=== PATIENT | female | born 1945 | race Caucasian/White ===

== ENCOUNTER → 2018-01-27 | Outpatient (CLI) | payer MEDICARE, BC, SELFPAY ==
--- NOTE | 2018-01-27 21:00 | DI.ECHO.S_ITS ---
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 -The resting gradient is 29 mmHg which increases to 56 mmHg with Valsalva maneuver. -No aortic valve stenosis or regurgitation. -Recommend repeating the study after hydration and possibly beta eloisa therapy to reassess the gradients. Procedure: A two-dimensional transthoracic echocardiogram with color flow and Doppler was performed. The study quality was technically adequate. There is no prior echocardiogram noted for this patient. The patient was in normal sinus rhythm during the exam. Left Ventricle: There is moderate proximal septal thickening noted. The left ventricular cavity is small. The echo findings are consistent with left ventricular outflow obstruction. The LVOT velocity is 2.7 m/s. The left ventricular outflow velocity with valsalva is 3.7 m/sec. The left ventricular ejection fraction is normal. The ejection fraction is estimated to be 65-70%. There are no focal wall motion abnormalities. Diastolic parameters suggest a relaxation abnormality of the left ventricle, consistent with probable normal filling pressures. Right Ventricle: The right ventricle is normal in size and function. TAPSE 2.4cm. Atria: The left atrium is moderately dilated. Right atrial size is normal. There is no Doppler evidence for an interatrial shunt. Mitral Valve: The mitral valve leaflets appear mildly thickened, but open well. There is systolic anterior motion of the chordal apparatus. There is mild to moderate mitral regurgitation. PISA could not be reliably performed due to 'poor color doppler quality'. Aortic Valve: The aortic valve is trileaflet. There is mild aortic valve sclerosis. The aortic valve opens well. There is increased velocities through the aoritc valve however visually the valve appears to open well. The increased velocity secondary to increased velocity in the left ventricular outflow tract. The peak aortic velocity is 2.2 m/sec. There is no aortic valve stenosis. There is trace aortic regurgitation. Tricuspid Valve: The tricuspid valve is normal. There is trace tricuspid regurgitation. The right ventricular systolic pressure is estimated to be at least 29 mmHg based on an estimated right atrial pressure of 3 mm Hg. Pulmonic Valve: The pulmonic valve is not well visualized. There is a trace or physiologic amount of pulmonic regurgitation. Great Vessels: The aortic root is normal size. The ascending aorta is at the upper limits of normal in size. The aortic arch is mildly enlarged. The pulmonary is not well visualized. The IVC is of normal diameter and collapses greater than 50% with a sniff. This suggests a low right atrial pressure of 3 mm Hg. Pericardium/ Pleura There is no pericardial effusion. There is no pleural effusion. MMode/2D Measurements & Calculations LVIDd: 3.3 cm LVOT diam: 2.0 cm LVIDs: 2.5 cm Ao root diam: 3.6 cm FS: 23.4 % asc Aorta Diam: 3.6 cm EPSS: 0.39 cm Ao Arch Diam (Prox Trans): 3.6 cm IVSd: 1.4 cm LVPWd: 0.81 cm LV riojas. diameter/BSA (cm/m^2): 1.8 LV sys. diameter/BSA (cm/m^2): 1.4 LA A2 area: 25.3 cm2 RA long axis: 4.5 cm LA A4 area: 25.6 cm2 RA area: 14.4 cm2 LA length (vol): 6.3 cm RA vol: 39.4 ml LA vol: 86.9 ml RA : 21.2 ml/m2 LA vol index: 46.7 ml/m2 IVC diam: 1.8 cm RVD1 (basal): 3.9 cm RVD2 (mid): 3.2 cm TAPSE: 2.4 cm Doppler Measurements & Calculations Ao V2 max: 219.8 cm/sec LVOT Max Kam: 357.5 cm/sec Ao V2 mean: 174.5 cm/sec LV V1 max P.2 mmHg Ao max P.3 mmHg DEWEY(V,D): 4.9 cm2 Ao mean P.3 mmHg Ao V2 VTI: 42.6 cm MV E max kam: 89.5 cm/sec TR max kam: 253.7 cm/sec MV A max kam: 100.9 cm/sec TR max P.7 mmHg MV E/A: 0.89 PA V2 max: 95.2 cm/sec Med Peak E' Kam: 6.2 cm/sec PA V2 mean: 66.7 cm/sec E/E' med: 14.4 PA mean P.0 mmHg Lat Peak E' Kam: 10.9 cm/sec PA pr(Accel): 21.6 mmHg E/E' lat: 8.2 E/e' average: 11.3 MV dec time: 0.21 sec _ Electronically signed by: Igor Carrillo M.D. on Reading Physician:01/27/2018 09:00 PM
== END ==
LOC: ECHO 12:32
PROVIDERS: PCP Physician Assistant; Visit Provider Physician Assistant
DX: I08.0 Rheumatic disorders of both mitral and aortic valves (principal)
CPT/HCPCS: 93306

== ENCOUNTER 2024-07-02 13:39 | Inpatient (IN) | payer MEDICARE, BC, SELFPAY ==
[2024-06-24 12:17] VITALS: BMI 30.8
[2024-07-01] VITALS (12 sets, daily range): BP systolic 105–188; BP diastolic 67–80; PULSE 66–88; RESP 10–18; TEMP 36.3–36.9; O2SAT 90–100; BMI 30.8
--- NOTE | 2024-07-01 07:16 | DI.RAD.S_ITS ---
PROCEDURE: XR KNEE RT 1TO2V INDICATIONS: right knee arthroplasty TECHNIQUE: 2 views of the knee acquired. COMPARISON: [facility] Vervinayak Aguilera, CR, XR KNEE 4+ VIEWS RIGHT, 03/25/2024, 10:32. FINDINGS: Bones: Patient is status post knee joint arthroplasty. Hardware components are in expected positions. Visualized bony structures are intact. Chronic calcification again noted adjacent to the medial femoral epicondyle. Soft tissues: Overlying postoperative changes are noted. IMPRESSION: Expected post-operative appearance of a knee arthroplasty. Approved by: Bradley Singh M.D. on 07/01/2024 at 17:06
[2024-07-01] MEDS: ACETAMINOPHEN 325 MG TABLET 975 MG PO (12:00)
[2024-07-01] MEDS: LACTATED RINGERS 1,000 ML 42 ML IV ×2 (12:01→15:21)
[2024-07-01] MEDS: VANCOMYCIN 1,000 MG in SODIUM CHLORIDE 0.9% 250 ML 250 MG IV (12:50)
--- NOTE | 2024-07-01 13:23 | SUR.PREOP ---
iv started by Kalpana Escamilla, KIYA x 2 attempts
--- NOTE | 2024-07-01 14:02 | PM.PREOP ---
Pre-operative Note Interval Note History & Physical reviewed/Exam performed by Physician: Yes Changes to H&P: No
--- NOTE | 2024-07-01 14:04 | PM.OP.1 ---
Operative Date/Time/Diagnoses Date of procedure: 07/01/24 Time of procedure: 14:30 Pre-op diagnosis: Right knee OA Post-op diagnosis: same Procedure & Clinicians Procedure: Right total knee arthroplasty Same procedure as scheduled: Yes Indications: The patient has had progressively worsening right knee pain with radiographic changes consistent with arthritis. Non-operative management has failed and the patient has requested total knee replacement. The risks, benefits and alternatives to surgery were discussed with the patient prior to proceeding. Risks discussed included, but were not limited to, failure to relieve pain, stiffness, infection, nerve damage, deep venous thrombosis, pulmonary embolism, stroke, coma, heart attack, permanent paralysis and , as well as the potential need for eventual revision of the prosthetic. Surgeon: Rissa Us Magazine Filler: Norma Khoury Anesthesia Type: General and Spinal Operative Notes Findings: Severe right knee OA Closure Type: primary Specimen(s): none sent Prosthetic devices, grafts, tissues, transplants, or devices: Us and nephew tsewney BCS 2 size 5 femur, size 4 tibia, +9 poly, 35 x 7-1/2 mm patella Estimated Blood Loss (mL): 250 Blood products transfused: none Tourniquet time (min): 38 Procedure in detail: The patient was seen in the pre-operative area, where the patient identified the right knee as the operative site and this was marked with my initials. The patient received pre-operative antibiotics, and was taken to the operating room and placed on the operative table in the supine position. After satisfactory anesthesia, a tower control operator out was performed. The right leg was encircled with a tourniquet about the proximal thigh, and the leg was prepared from the toes to the tourniquet with ChloroPrep in the usual fashion and draped through sterile drapes. The leg was elevated and exsanguinated with Eschmark bandage and the tourniquet inflated to [250] mmHg pressure. The patient was quite hypertensive and clearly it was a venous tourniquet. We put the tourniquet down after about 1 minute and then left it down until cementing. A PA was used during the procedure and was essential for intraoperative retraction and safe implantation of the components. The knee was approached through an approximately 18 cm incision centered over the patella and carried into the knee through a medial parapatellar arthrotomy. Portion of the medial and lateral meniscus was resected. Soft tissue was carefully mobilized around the patella the patella was measured with a caliper. Bone was resected from the patella and the patellar height was reconstituted with up an appropriate sized patellar component. A cover was then placed on the patella. A small amount of additional medial and lateral meniscus was resected. Alberto pins were placed for robotic assisted navigated knee replacement. The adjustable tibial guide was placed. A plan was carefully taken developed in order to provide balanced range of motion and full range of motion of the knee. The Cori robotic bur was used for the distal femoral resection. It looked like an appropriate distal femoral cut and the cut was made without difficulty. The rotation was assessed and the appropriate size femoral guide was placed on the distal femur and finishing cuts were made. There was no evidence of notching. The anterior, posterior and chamfer cuts were then made. The posterior osteophytes and soft tissues were then removed. The posterior capsule was injected with part of a mixture of 60 ml 0.25% Marcaine mixed with 20 ml Exparel for post operative pain control. The remainder of this mixture was injected into the capsule and subcutaneous tissues during cement curing. The tibial resection guide was carefully navigated with the Cori robotic assisted device. The rotation was assessed. The patient was placed in extension residual medial and lateral meniscus as well as any residual bone was carefully resected. [No] additional tibia was resected. Hemostasis was achieved especially posteriorly. Additional local was injected into the posterior capsule. The extension gap was assessed. The femoral component trial was placed and the notch was finished. Trial tibial and femoral components were then placed and the knee placed through a range of motion. Range of motion was [0-130], with good stability throughout the range. The trials were then removed, and the tibia was finished. The bone was prepared with pulsatile lavage, and dried with a sponge. Cement was applied and the final prosthetics placed. Excess cement was removed during and after cement curing. A brief Betadine soak was performed. After confirming there was no extruded cement posteriorly, the final tibial insert was placed. The knee was copiously irrigated and the tourniquet deflated. Hemostasis was obtained with the [Aquamantys system]. A drain was placed and brought out superolaterally. The capsule was closed with interrupted # 1 Vicryl suture. The subcutaneous layer was closed with barbed sutures, and the skin with a running 3-0 V-Lock suture and Surgical glue. An Aquacel Ag dressing was applied and the patient was taken to recovery having tolerated the procedure well. Complications: none Post-operative Condition: stable Disposition: Acute Care Plan for aftercare: The patient will be maintained on a standard total knee replacement protocol with weight bearing as tolerated. The patient will receive aspirin and sequential compression devices for DVT prophylaxis. The patient will be discharged home when safe for the home environment.
[2024-07-01] MEDS: CEFAZOLIN 2 GM/100 ML PREMIX 100 ML IV ×2 (14:14→22:41)
--- NOTE | 2024-07-01 14:24 | SUR.PREOP ---
time out performed by Dr Case and this RN @ 1346. start time [1347] . Monitoring initiated and maintained throughout procedure. Oxygen and medications given per anesthesiologist. Patient remained stable throughout procedure, no adverse reactions noted. Block end time [1355].
[2024-07-01] MEDS: TRANEXAMIC ACID 1,000 MG VIAL 1000 MG INJ ×2 (14:29→16:20)
--- NOTE | 2024-07-01 14:53 | SUR.OPER ---
Supine on padded OR bed. Pillow under head, arms secured on padded armboards <90 degree abduction. Safety belt across torso. Non-operative leg secured with tape over blanket over lower leg. Operative leg secured in DeMayo positioner. Foam padded brace at thigh of operative leg.
[2024-07-01] MEDS: BUPIVACAINE 0.25% W/ EPI 30 ML VIAL 60 ML INJ (14:59)
[2024-07-01] MEDS: BUPIVACAINE LIPOSOME 266 MG/20 ML VIAL INJ (14:59)
--- NOTE | 2024-07-01 16:59 | PC.NURSE ---
Day shift: Pt not in room 209 at this time (1700).
[2024-07-01] MEDS: HYDROMORPHONE 1 MG INJ IV ×2 (17:06→17:34)
[2024-07-01] MEDS: BENZOCAINE/MENTHOL 1 LOZ PKT 1 EACH PO ×2 (17:16→23:57)
[2024-07-01] MEDS: OXYCODONE IR 5 MG TABLET PO ×2 (17:25→20:48)
[2024-07-01] MEDS: ALBUTEROL 2.5 MG/3 ML NEB (ADULT) INH (17:26)
[2024-07-01] MEDS: LACTATED RINGERS 1,000 ML 100 ML IV (18:21)
--- NOTE | 2024-07-01 18:23 | PC.NURSE ---
Day shift: Pt in room from PACU at approx 1815. She is A&Ox4. On 2L NC 95%. Was on RA and was 89%. She is asleep now as this is written. Rt knee dressing are CDI. CMS intact with PPP and good cap refill. SCD's tolerated. Was instructed on I.S. VS WNL. Oriented to room and call light. Denies urge to void at this time. ALos denies any chest pain. She did and does complain of sore throat. Explained that it was likely from being intubated. SPOOLER RUBBER STRAND explained this as well. SPOOLER RUBBER STRAND also instructed Pt on the I.S. use. Bed alarm is on for safety and door to room open for now.
[2024-07-01] MEDS: DOCUSATE 100 MG CAPSULE PO (20:48)
[2024-07-01] MEDS: ASPIRIN EC 81 MG TABLET PO (20:48)
[2024-07-01] MEDS: ACETAMINOPHEN 325 MG TABLET 650 MG PO (20:48)
[2024-07-01] MEDS: VENLAFAXINE 37.5 MG TABLET 75 MG PO (20:48)
--- NOTE | 2024-07-01 23:59 | PC.NURSE ---
Up to BSC x 2, unable to void. Reports discomfort, Bladder scan > 450cc. Straight cath- 400cc at midnight.
[2024-07-02] VITALS (9 sets, daily range): BP systolic 100–172; BP diastolic 66–105; PULSE 68–78; RESP 14–18; TEMP 36.4–37.3; O2SAT 93–99
[2024-07-02] MEDS: OXYCODONE IR 5 MG TABLET PO ×2 (02:48→20:28)
[2024-07-02] MEDS: CALCIUM CARBONATE 500 MG TAB 1000 MG PO ×2 (04:30→20:28)
[2024-07-02 05:13] LABS: Hematocrit 21.4 % (36-46)
[2024-07-02 05:16] LABS: Hemoglobin 6.8 g/dL (12.0-16.0)
[2024-07-02] MEDS: CEFAZOLIN 2 GM/100 ML PREMIX 100 ML IV (05:22)
[2024-07-02] MEDS: PANTOPRAZOLE DR 40 MG TABLET PO (05:47)
[2024-07-02] MEDS: VENLAFAXINE 37.5 MG TABLET 75 MG PO ×2 (08:35→20:28)
[2024-07-02] MEDS: TRAZODONE 50 MG TABLET 100 MG PO (08:35)
[2024-07-02] MEDS: ASPIRIN EC 81 MG TABLET PO ×2 (08:35→20:28)
--- NOTE | 2024-07-02 08:48 | PM.PNPO.1 ---
Subjective Subjective Date Patient Seen: 07/02/24 Time Patient Seen: 08:30 Interval history: Patient's pain is controlled with oral medication. Pain is localized to surgical site. Patient declines any new numbness or tingling at the surgical extremity. Patient denies any shortness of breath, dizziness, light-headedness, nausea, vomiting, fever or chills. Has not worked with PT yet. Exam Vital Signs (past 8 hours): - 07/02/24 01:00 07/02/24 06:00 Temperature 97.6 F 98.6 F Pulse Rate 68 69 Respiratory Rate 18 18 Blood Pressure 100/66 123/80 Pulse Oximetry 93 93 Oxygen Flow Rate 2 2 Oxygen Delivery Method Nasal Cannula Oxygen Flow Rate 2 Narrative Exam Narrative: 5/5 strength in hip flexors, quadriceps, hamstrings, DF, PF, EHL bilaterally. Sensation to light touch intact throughout BLE. Calves soft, compressible, nontender. Dressing placed intraoperatively CDI. No signs of echymosis or an abnormal amount of post operative swelling. SCDs on but not running. Resp Effort & Inspection: normal respiratory effort and able to speak in complete sentences Objective Labs 07/02/24 14:30 Labs: Laboratory Results - last 24 hr 07/02/24 04:40 Hgb 6.8 L* Hct 21.4 L PFSH Medical History (Updated 06/25/24 @ 07:55 by Shannen Bella RN) Cardiomyopathy Hiatal hernia Peritonitis HTN (hypertension) Insomnia Anemia IBS (irritable bowel syndrome) GERD (gastroesophageal reflux disease) Depression Asthma Surgical History (Updated 06/24/24 @ 15:31 by Shannen Bella RN) Hx of esophagogastroduodenoscopy (06/18/16) Hx of LASIK H/O cataract extraction Hx of cholecystectomy (04/10/07) History of hysterectomy (~1979) Social History household members: spouse Smoking Status: Never smoker alcohol intake: current Assessment & Plan Post-op Postoperative Procedures: Procedures Operation Date: 07/01/24 13:45 Actual Procedure Side Surgeon p RIGHT Knee Arthroplasty - Robot Right Rissa Us MD Postoperative day: 1 Postoperative status: doing well and anemia Postoperative plan narrative: H&H this morning was 6.8/21.[address] Us. She ordered 1 unit of RBC. Repeat H&H later in the day 8.4/26.4. Will repeat H&H tomorrow morning. Patient is motived to go home. SCDs turned on before leaving pt. SCDs are to be on and running when resting in bed. Ambulate and weight bear as tolerated with assistive devices. Work with PT for mobilization. Aspirin 81 mg twice a day for 6 weeks for DVT prevention. Baseline pain relief with acetaminophen 500mg every 4 hours as needed and ibuprofen 400 mg every 4 hours as needed. Patient has been prescribed oxycodone 5 mg every 4 hours as needed for breakthrough pain. Re-examine in the morning. If medically stable and with PT clearance, will be ready for discharge to home. Quality VTE Deep Vein Thrombosis/Pulmonary Embolism Present on Admission: No
--- NOTE | 2024-07-02 09:24 | PT-IP ANOTE ---
PT eval order received. EMR reviewed. pt with hgb 6.8 and Hct: 21.4. pt will be receiving blood transfusion per ortho PA. will hold PT eval at this time. will f/u.
--- NOTE | 2024-07-02 10:23 | OT.IPNOTE ---
Pt having low HH, hold OT eval.
[2024-07-02 14:41] LABS: Hematocrit 26.4 % (36-46); Hemoglobin 8.4 g/dL (12.0-16.0)
--- NOTE | 2024-07-02 16:00 | PT.IIE ---
Current Diagnoses Unilateral primary osteoarthritis, right knee (07/02/24) Surgery Performed Operation Date: 07/01/24 13:45 Actual Procedures p RIGHT Knee Arthroplasty - Robot(Right) - Rissa Us MD Surgical History (Last Updated 06/24/24 @ 15:31 by Shannen Bella, RN) H/O cataract extraction History of hysterectomy (~1979) Hx of cholecystectomy (04/10/07) Hx of esophagogastroduodenoscopy (06/18/16) Hx of LASIK Medical History (Last Updated 06/25/24 @ 07:55 by Shannen Bella, RN) Anemia Asthma Cardiomyopathy Depression GERD (gastroesophageal reflux disease) Hiatal hernia HTN (hypertension) IBS (irritable bowel syndrome) Insomnia Peritonitis Physical Therapy Inpatient Evaluation/Re-Eval M1 PT/OT-IP Prior Functional Status Start: 07/02/24 15:38 Freq: NEEDED Status: Active Protocol: Document 07/02/24 15:35 DLM (Rec: 07/02/24 15:42 DLM [id number]) Medical Review Prior Functional Status Medical History Reviewed Yes Diet/Fluid Consistency Regular Communication WFL Mobility and Gait Independent, uses a 4WW as needed for manage her right knee pain and swelling. She has falled out of bed in the past. Activities of Daily Living and IADL's Independent. Spouse helps with child life specialist especially when she has increased knee pain. She reports difficulty standing up from the toilet even using rails to assist. She likes to read. Prior Functional Level (Other details) She is interested in getting a bed rail but has not found one that works for her. Social History Household Members spouse Living Arrangements House Number of Floors (Floors) Two Floors Number of Stairs To Enter/Railing? she stays on first floor of house, no steps to enter house , the driveway is steep Home Environment High Toilet,Walk in Shower Home Equipment Front Wheel Walker,Four Wheel Walker,Shower Seat without Backrest,Grab Bars Near Toilet ,Grab Bars In Shower Employment Status Retired Additional Social History Comment bidet, has ice pack M2 PT-IP Current Condition Start: 07/02/24 15:38 Freq: NEEDED Status: Active Protocol: Document 07/02/24 15:35 DLM (Rec: 07/02/24 15:52 DLM [id number]) Physical Therapy Current Condition Current Condition Evaluation Date 07/02/24 Treatment Diagnosis right TKA 07/01/24, impaired gait Onset Date 07/01/24 M3 PT-IP Subjective Start: 07/02/24 15:38 Freq: NEEDED Status: Active Protocol: Document 07/02/24 15:35 DL (Rec: 07/02/24 15:52 [facility] [id number]) Subjective Physical Therapy Visit Type Type Initial Evaluation Visit Start Time 15:00 Visit Stop Time 15:35 Number of CRUSHER [employer] MICA Visits 0 Physical Therapy Visit Comments Patient Comments Her reports she needs to be able to walk around the house to go home. Pt reports intermittent sharp pains in right knee. Her throat is less sore today than yesterday. Patient Goals Discharge home with her Therapy Pain Assessment Pain When Pain Assessed During Mobility Pain Present Pain Present Pain Reported Location right knee Intensity 7 Scale Used Numeric (0 - 10) Description Aching,Sharp,Tender,With Movement Pain Behaviors Facial Grimacing,Guarding, Wincing Pain Management Techniques Apply Cold,Elevation, Modification of Treatment,Re- positioning,Timing of Activity with Medications M4 PT-IP Mobility and Gait Start: 07/02/24 15:38 Freq: NEEDED Status: Active Protocol: Document 07/02/24 16:00 DLM (Rec: 07/02/24 16:44 [facility] [id number]) PT-Bed Mobility Assessment Supine to Sit Supine to Sit Standby Assistance Sit to Supine Sit to Supine Independent Scooting Scooting to Edge of Bed Independent PT-Transfer Assessment Sit to and From Stand Sit to and from Stand Contact Guard Assistance, Minimal Assistance Equipment Transfer Assistive Device Gait Belt,Front Wheeled Walker Transfers Transfer Destination Bed,Chair Transfer Technique Stand Step Pivot Transfer Ability Level of Assist Contact Guard Assistance,Use of Upper Extremities Comments Mobility Comments Having difficulty keeping right foot flat on floor for weight bearing with c/o knee pain. She tends to keep weight on her toes. Educated pt in flat foot use Gait Assessment Gait Gait Assistance Required: Contact Guard Assist Distance (Feet) 20 Able to Maintain Weight Bearing Status Yes During Gait Assistive Devices Assistive Device Gait Belt,Front Wheeled Walker Gait Deviations General Gait Pattern Antalgic,Decreased Stride Length,Step-to Gait Factors Limiting Gait Function Factors Limiting Gait Function Decreased Activity Tolerance, Decreased Strength,Limited Range of Motion,Pain,Poor Balance Comments Gait Comments small steps during gait, pauses between steps, she intermittent flexed right knee in standing to manage her knee pain, slow pace of gait Stair Climbing Assessment Comments Stair Climbing Comments no stairs at home PT-Balance Assessment Sitting Balance and Reactions Static Sitting Balance Ability Normal Dynamic Sitting Balance Ability Normal Standing Balance and Reactions Static Standing Balance Ability Good Dynamic Standing Balance Ability Fair Device Used FWW M5 PT-IP Objective Assessments Start: 07/02/24 15:38 Freq: NEEDED Status: Active Protocol: Document 07/02/24 15:35 DLM (Rec: 07/02/24 15:52 DLM [id number]) Orientation Orientation/Cognition Level of Alertness Alert Orientation Name,Age,Birthday,Month,Date, Year,Day of Week,Place, Situation Language Function Ability No Deficits Noted Safety Awareness Understands Safety Issues Memory Description No Deficits Noted Gross Range of Motion Upper Extremity ROM Assessment Within Functional Limits Impairments hx of right rotator cuff injury after falling out of bed Lower Extremity ROM Assessment Right Impaired Impairments knee with pain, active 20-80 Strength Upper Extremity Strength Assessment Within Functional Limits Lower Extremity Strength Assessment Right Impaired Hip flex 2+/5, needs assist to lift LE off bed with extensor lag Knee flex 3+/5, ext 2+/5 Ankle DF 4/5 Comments Strength Comments pain in right knee limits functional strength Coordination Assessment Gross Coordination Gross Coordination WNL Sensation Assessment Sensation Gross Sensation WNL Muscle Tone Muscle Tone WNL Yes M6 PT-IP Treatment Start: 07/02/24 15:38 Freq: NEEDED Status: Active Protocol: Document 07/02/24 15:35 DLM (Rec: 07/02/24 15:52 DL [id number]) Physical Therapy Treatment Exercises Exercises Ankle Pumps,Quad Sets,Heel Slides,Straight Leg Raises, Short Arc Quads,Passive Knee Extension Hang,Seated Knee Flexion/Extension Education Education Provided Weight Bearing Status,Post-Op Packet,Safety Other Treatments Other Treatment Performed Her is present for therapy this visit. Discussed home equipment needs and discharge goals. M7 PT-IP Assessment and Plan Start: 07/02/24 15:38 Freq: NEEDED Status: Active Protocol: Document 07/02/24 15:35 DLM (Rec: 07/02/24 15:52 DL [id number]) PT Summary Assessment and Plan Potential Rehabilitation Potential Good Status of Condition at Evaluation Evolving Summary Impairments Pain,ROM,Strength,Balance,Bed Mobility,Transfers,Gait, Activity Tolerance Assessment Summary [place] is alert and up to recliner today. She was admitted for right total knee arthroplasty. She had a low H& H after surgery and received a blood transfusion today. She fatigues quickly with activity today and needs standing rest breaks and seated rests breaks to complete activity. She appears to have mild shortness of breath but O2 sats are 96%. She was able to progress to short distances of gait in her room with the FWW . Pt left up in the recliner after activity. She is very motivated to discharge home. She is not safe to discharge home today. Will work towards possible discharge tomorrow if she can continue to progress in therapy. Goals Bed Mobility Goal Independent Transfer Goal Standby Assistance,Front Wheeled Walker Gait Goal Standby Assistance,Front Wheel Walker Gait Distance 150 feet Days to Meet Goals 4 Frequency of Treatment Frequency Of Treatment Twice a Day Treatment Plan Physical Therapy Treatment Plan Bed Mobility Training,Transfer Training,Gait Training, Therapeutic Exercise,Balance Retraining,Post Op Education, Discharge Planning,Hot or Cold Pack,Neuromuscular Re-ed Precautions Other Precautions pt had low H&H after surgery, received blood transfusion today Weight Bearing Status Weight Bearing Status Weight Bear as Tolerated Allowed Weight Bearing Amount (enter % right LE with use of FWW or #) (%) Recommendations To Nursing Amount of Assist Needed 1 Person Assist Discharge Recommendations PT Discharge Recommendations Home with Assistance, Outpatient PT Other Discharge Recommendations pt wants home, continue to assess as she becomes more medically stable. She is not ready to discharge home today. Transportation Needs at Discharge Private Vehicle - PT assist 1P
--- NOTE | 2024-07-02 16:33 | CM.DANOTE ---
Initial DCP Assessment Visit Note Reviewed EMR and team rounds for patient's medical status and updates. Met with patient at bedside to introduce self and role. Patient was found to be alert and oriented. Patient was calm and cooperative during our conversation. Patient lives in her own home with his spouse. She is fully independent with self care and ADLs. She does have a walker on hand, she said she had been walking so well prior to this surgery that she rarely needed to use the walker at all.. He typically transports himself by private vehicle and his spouse is available to transport him when he can't drive. Plan is to return back home after leaving the hospital. Payor: Medicare PCP: Albertina Ronyjose Patient is a 78 year old female who had planned right total knee replacement surgery on 07/01/[address]. Patient's surgery went well, however today her H&H was low and she requred a unit of blood and she needs to stay in the hospital another night to ensure the anemia is corrected. PT had to be put off due to this concern. If patient is doing well tomorrow she will likely be able to discharge home. Her will provide transportation home. CM Discharge Assessment Start: 07/02/24 16:29 Freq: Status: Active Protocol: Document 07/02/24 16:29 ASMITA (Rec: 07/02/24 16:33 [facility] [id number]) Discharge Planning Assessment Assigned Development Rep Sunny Crowe RN Advance Directives? No Advance Directives on File No History Provided By Patient,Medical Record Expected Length of Stay 2 Has Patient been admitted in last 30 No days? Prior Living Arrangements House Household Members spouse Type of transporation used prior to Relies on Others admit Comment Patient's transports her. Independent with ADL's Yes Is patient alert and oriented? Yes Caregiver for Another No Comment None DME Already Rented / Owned FWW / Walker Comment Grab bars at home, bidet. Patient/Family Preference OP PT Therapy Comment Patient has already scheduled outpatient PT visits. Barriers to Discharge No Discharge Plan Home Transportation Arrangement Patient's will transport. Referrals Initiated None needed Inpatient Status as of 07/02/24 Whiteboard Updated in Patient Room with Yes name and ext. # of Development Rep Review Status In Process Please Provide Date Initial DC 07/02/24 Assessment Was Performed Pre-Anesthesia Assessment Start: 06/24/24 12:17 Freq: Status: Complete Protocol: Document 06/24/24 12:17 LB (Rec: 06/24/24 13:35 LB [id number]) Pre-Anesthesia Assessment PAC Comment 06/24/24 Phone assessment. Advised pt to bring albuterol DOS so she can be shown how to use it I couldn't make it work. Patient Information Reviewed Via Phone Assessment Assessment Completed With Patient Diagnostic Results BMP/CMP,CBC,EKG,Urinalysis Comment 05/26/24 Outside results K+ 3.3, Hgb 8.4 Hct 29.0 Primary Care Provider Albertina Guerrier Seen Specialist in Last 12 Months Yes Specialist Seen Orthopedist Primary Language Cameroonian Preferred Language Cameroonian Logistician Required No Height 160.02 cm Weight 78.925 kg Body Mass Index (BMI) 30.8 Hearing Ability Normal Visual Assist Glasses Dentition Type Teeth, Natural Present Barriers to Learning None Hx Anesthesia Reactions Yes: PONV. Hx Family Anesthesia Reaction No Hx Malignant Hyperthermia No Hx Blood Transfusions No Anesthesia Review Requested No Guest Services Representative No alcohol intake current Smoking Status Never smoker Substance Use Type [#R] does not use Pain Present Pain Reported Comment Right knee. Musculoskeletal Symptoms Difficulty Walking,Joint Pain History of Falling (Recent or History of Yes ) Comment Frequent falls. Patient is completely paralyzed or No completely immobile Ambulatory Aid Furniture Prosthesis or Orthotic Device Front Wheel Walker Mental Status Oriented to own ability Comment Will bring walker. Is patient on oxygen? No Does patient have ROD/SOB No Hx Sleep Apnea No Currently Taking a Beta Reji No Can You Climb a Flight of Stairs Without Unable to do stairs due to SOB knee pain. Hx Chest Pain No Hx SOB Yes: A few years ago when I would stand up. Hx Syncope or Dizziness No Anti-Coagulant Therapy Yes: Aspirin 325mg - advised to hold 7 days preop by surgeon office. Has a Forest Pathology Associate Professor No Cardiac Testing Yes: Echo 2018. Hx Pacemaker/ICD No Dysphagia Yes Gastrointestinal Symptoms Constipation,Diarrhea, Dysphagia,Fecal Incontinence, Reflux Comment Due to IBS. Bladder Pattern Nocturia Urinary Catheter Present No Hx Urinary Self Catheterization No Diabetes No Patient No Lactating No Hx Drug Resistant Organism No Presence of External or Internal Medical Yes: Bilat IOL's. Devices Have you had any close contact with No someone diagnosed with COVID-19? Are you experiencing any of these Cough symptoms? Comment Denies covid last 8 weeks. Chronic cough. Marital Status Lives With spouse Current Living Arrangements House Number of Floors (Floors) Two Floors Number of Stairs To Enter/Railing? Main floor living. 0 stairs to enter. Support System Spouse Does the Patient Have Assistance After Yes Surgery Patient Discharge Plan Description Return Home Feels Safe in Current Environment Yes Emergency Contact Name Luis Rain - Emergency Contact Advance Directives? No Advance Directives on File No PAC Instructions Assistance for 24 hours post- op,Do not shave/clip surgical site,Durable medical equipment ,Medications to take/avoid, Nasal antibiotic,No ETOH/ petroleum product on skin DOS, NPO,Post-op transportation,Pre -surgical wash,Sensory aids, Sturdy shoes/comfortable clothes,Do not bring valuables and remove jewelry
--- NOTE | 2024-07-02 18:14 | CM.MNRNOTE ---
Pr denies any discomfort at this time Assisted back to bed w/o incidence. Condition remains essentially unchanged, Continue w/plan of care.
[2024-07-02] MEDS: DOCUSATE 100 MG CAPSULE PO (20:28)
[2024-07-03] MEDS: OXYCODONE IR 5 MG TABLET PO (00:07)
[2024-07-03] MEDS: ACETAMINOPHEN 325 MG TABLET 650 MG PO ×3 (00:07→16:16)
[2024-07-03 05:15] LABS: Hematocrit 23.8 % (36-46); Hemoglobin 7.7 g/dL (12.0-16.0)
[2024-07-03] MEDS: PANTOPRAZOLE DR 40 MG TABLET PO (05:35)
[2024-07-03 08:00] VITALS: BP 161/90; PULSE 71; RESP 16; TEMP 37.3; O2SAT 96
[2024-07-03] MEDS: ASPIRIN EC 81 MG TABLET PO ×2 (08:17→20:59)
[2024-07-03] MEDS: VENLAFAXINE 37.5 MG TABLET 75 MG PO ×2 (08:17→21:00)
--- NOTE | 2024-07-03 09:31 | DI.US.S_ITS ---
PROCEDURE: US PERIPH VENOUS LOW EXTREM RT INDICATIONS: r/o DVT TECHNIQUE: Real-time imaging, as well as color and pulse Doppler interrogation, were performed of the lower extremity deep veins from the inguinal ligament to the popliteal fossa, with documentation of the visualized calf veins. COMPARISON: None. FINDINGS: Please note that the posterior tibial and peroneal veins are obscured due to overlying subcutaneous edema. Otherwise, the common femoral, femoral, popliteal, and the visualized calf veins are normally compressible, and free of intraluminal thrombus. Color and pulse Doppler demonstrate normal phasic intraluminal flow. There is normal augmentation response to distal compression maneuver. IMPRESSION: No findings of lower extremity deep venous thrombosis. Dictated by: Jeison Walls M.D. on 07/03/2024 at 13:13 Approved by: Jeison Walls M.D. on 07/03/2024 at 13:14
--- NOTE | 2024-07-03 09:34 | PM.PNPO.1 ---
Subjective Subjective Date Patient Seen: 07/03/24 Time Patient Seen: 09:34 Interval history: Patient's pain is controlled with oral medication. ?Pain is localized to surgical site. ?Patient declines any new numbness or tingling at the surgical extremity. ?Patient denies any, dizziness, light-headedness, vomiting, fever or chills. Has complaints of shortness of breath & nausea. She has acute pain down the posterior calf. Exam Vital Signs (past 8 hours): - 07/03/24 08:00 Temperature 99.2 F Pulse Rate 71 Respiratory Rate 16 Blood Pressure 161/90 H Pulse Oximetry 96 Oxygen Flow Rate 0 Oxygen Delivery Method Room Air Oxygen Flow Rate 0 Narrative Exam Narrative: 5/5 strength in hip flexors, quadriceps, hamstrings, DF, PF, EHL bilaterally. Sensation to light touch intact throughout BLE. Calves soft, compressible bilaterally. Right calf is acutely tender and warm to touch. Dressing placed intraoperatively CDI. Hyper sensitive to light touch over the proximal wound site. Adequate amounts effusion for postoperative TKA. No signs ecchymosis throughout the right lower extremity. SCDs were off this morning. Resp Effort & Inspection: normal respiratory effort and able to speak in complete sentences Objective Labs 07/03/24 04:46 Labs: Laboratory Results - last 24 hr 07/02/24 07/02/24 07/03/24 09:26 14:30 04:46 Hgb 8.4 L 7.7 L Hct 26.4 L 23.8 L Blood Type O Positive Antibody Screen Negative Crossmatch See Detail [facility] Medical History (Updated 06/25/24 @ 07:55 by Shannen Bella RN) Cardiomyopathy Hiatal hernia Peritonitis HTN (hypertension) Insomnia Anemia IBS (irritable bowel syndrome) GERD (gastroesophageal reflux disease) Depression Asthma Surgical History (Updated 06/24/24 @ 15:31 by Shannen Bella RN) Hx of esophagogastroduodenoscopy (06/18/16) Hx of LASIK H/O cataract extraction Hx of cholecystectomy (04/10/07) History of hysterectomy (~1979) Social History household members: spouse Smoking Status: Never smoker alcohol intake: current Assessment & Plan Post-op Postoperative Procedures: Procedures Operation Date: 07/01/24 13:45 Actual Procedure Side Surgeon p RIGHT Knee Arthroplasty - Robot Right Rissa Us MD Postoperative day: 2 Postoperative status narrative: Concern about acute hypertensive episode last night. H&H down trending this morning. Postoperative plan narrative: U/S ordered to rule out DVT. Spoke with Dr. Us. Recommended if U/S is negative, perform transfusion after pm PT is completed. Repeat H&H 1 hour after transfusion is complete. If H&H and BP is stable, ready for discharge. SCDs need to be on and running while patient is resting in bed. Plan is to Discharge home. Ambulate and weight bear as tolerated with assistive devices. Aspirin 325mg daily for 6 weeks for DVT prevention. Baseline pain relief with acetaminophen 500mg every 4 hours as needed and ibuprofen 400 mg every 4 hours as needed. Patient has been prescribed oxycodone 5 mg every 4 hours as needed for breakthrough pain. Initiate physical therapy in the next 5-10 days. Keep dressing clean and dry. Keep dressing on until first office visit. If dressing becomes dirty or disrupted, replace with appropriate sized dressing. Follow up in clinic in 2 weeks for wound check. Contact clinic if there are any questions or concerns. Time Spent With Patient Time with patient: 15-24 minutes Quality VTE Deep Vein Thrombosis/Pulmonary Embolism Present on Admission: No
[2024-07-03] MEDS: IBUPROFEN 400 MG TABLET PO ×2 (11:10→21:00)
--- NOTE | 2024-07-03 11:22 | PT-IP ANOTE ---
Holding Physical therapy treatment this AM. Pt has an US ordered for right LE to rule out DVT. Her H&H has decreased this AM with Hemoglobin 7.7 and Hematocrit 23.8.
--- NOTE | 2024-07-03 15:00 | PT.IPTN ---
Current Diagnoses Unilateral primary osteoarthritis, right knee (07/02/24) Surgery Performed Operation Date: 07/01/24 13:45 Actual Procedures p RIGHT Knee Arthroplasty - Robot(Right) - Rissa Us MD Physical Therapy Treatment Note M2 PT-IP Current Condition Start: 07/02/24 15:38 Freq: NEEDED Status: Active Protocol: Document 07/02/24 15:35 DLM (Rec: 07/02/24 15:52 DLM [id number]) Physical Therapy Current Condition Current Condition Evaluation Date 07/02/24 Treatment Diagnosis right TKA 07/01/24, impaired gait Onset Date 07/01/24 M3 PT-IP Subjective Start: 07/02/24 15:38 Freq: NEEDED Status: Active Protocol: Document 07/03/24 15:00 DLM (Rec: 07/03/24 15:12 DLM [id number]) Subjective Physical Therapy Visit Type Type Treatment Note Visit Start Time 14:00 Visit Stop Time 15:00 Notes 45 min therapy time, pt on toilet for BM 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 Patient Goals discharge home Therapy Pain Assessment Pain When Pain Assessed After Treatment Pain Present Pain Present Pain Reported Location right knee Intensity 4 Scale Used Numeric (0 - 10) Description Aching,Tender,Tightness,With Movement Pain Behaviors Guarding Pain Management Techniques Apply Cold,Elevation,Re- positioning,Timing of Activity with Medications M4 PT-IP Mobility and Gait Start: 07/02/24 15:38 Freq: NEEDED Status: Active Protocol: Document 07/03/24 15:00 DLM (Rec: 07/03/24 15:12 DLM [id number]) PT-Bed Mobility Assessment Supine to Sit Supine to Sit Independent Scooting Scooting to Edge of Bed Independent PT-Transfer Assessment Sit to and From Stand Sit to and from Stand Standby Assistance,Use of Upper Extremities Equipment Transfer Assistive Device Gait Belt,Front Wheeled Walker Transfers Transfer Destination Chair,Toilet Transfer Technique Stand Step Pivot Transfer Ability Level of Assist Standby Assistance,Use of Upper Extremities Comments Mobility Comments She is slow scooting forward on the bed but able to complete it on her own. She needs extra time for sit to stand to organize her UE position and make sure she is scooted out enough but does well once positioned. Pt able to have BM on the toilet during this visit and wash hands at the sink in standing. Gait Assessment Gait Gait Assistance Required: Standby Assistance Distance (Feet) 110 Able to Maintain Weight Bearing Status Yes During Gait Assistive Devices Assistive Device Gait Belt,Front Wheeled Walker Gait Deviations General Gait Pattern Antalgic,Decreased Stride Length,Flexed Trunk Factors Limiting Gait Function Factors Limiting Gait Function Decreased Activity Tolerance, Decreased Strength,Limited Range of Motion,Pain Comments Gait Comments she shows improved ability to keep right foot flat on floor for improved weight bearing on right LE during gait Noted her FWW from home is a little tall for her but pt reports she feels comfortable. Instructed pt and her Spouse to get a shorter walker if pt has any difficulty with this borrowed FWW at home. Stair Climbing Assessment Comments Stair Climbing Comments no stairs at home PT-Balance Assessment Sitting Balance and Reactions Static Sitting Balance Ability Normal Dynamic Sitting Balance Ability Normal Standing Balance and Reactions Static Standing Balance Ability Good Dynamic Standing Balance Ability Good Device Used FWW M5 PT-IP Objective Assessments Start: 07/02/24 15:38 Freq: NEEDED Status: Active Protocol: Document 07/02/24 15:35 DLM (Rec: 07/02/24 15:52 DLM [id number]) Orientation Orientation/Cognition Level of Alertness Alert Orientation Name,Age,Birthday,Month,Date, Year,Day of Week,Place, Situation Language Function Ability No Deficits Noted Safety Awareness Understands Safety Issues Memory Description No Deficits Noted Gross Range of Motion Upper Extremity ROM Assessment Within Functional Limits Impairments hx of right rotator cuff injury after falling out of bed Lower Extremity ROM Assessment Right Impaired Impairments knee with pain, active 20-80 Strength Upper Extremity Strength Assessment Within Functional Limits Lower Extremity Strength Assessment Right Impaired Hip flex 2+/5, needs assist to lift LE off bed with extensor lag Knee flex 3+/5, ext 2+/5 Ankle DF 4/5 Comments Strength Comments pain in right knee limits functional strength Coordination Assessment Gross Coordination Gross Coordination WNL Sensation Assessment Sensation Gross Sensation WNL Muscle Tone Muscle Tone WNL Yes M6 PT-IP Treatment Start: 07/02/24 15:38 Freq: NEEDED Status: Active Protocol: Document 07/03/24 15:00 DLM (Rec: 07/03/24 15:12 DLM [id number]) Physical Therapy Treatment Exercises Exercises Ankle Pumps,Quad Sets,Heel Slides,Straight Leg Raises, Short Arc Quads,Passive Knee Extension Hang,Seated Knee Flexion/Extension Knee ROM Measurement 15-85 degrees actively Education Education Provided Weight Bearing Status,Safety Other Treatments Other Treatment Performed Her arrived during this treatment session M7 PT-IP Assessment and Plan Start: 07/02/24 15:38 Freq: NEEDED Status: Active Protocol: Document 07/03/24 15:00 DLM (Rec: 07/03/24 15:12 DLM [id number]) PT Summary Assessment and Plan Summary Impairments Pain,ROM,Strength,Balance,Bed Mobility,Transfers,Gait, Activity Tolerance Progress Towards Goals Progressing Toward Goals Assessment Summary [place] is progressing well today in therapy. She reports less right knee pain with activity. Her quality of gait with the FWW is improving with right foot flat on floor for functional weight bearing. She appears safe to discharge home today if she is cleared medically. Communicated with her nurse after treatment. Goals Bed Mobility Goal Independent Transfer Goal Standby Assistance,Front Wheeled Walker Gait Goal Standby Assistance,Front Wheel Walker Gait Distance 150 feet Days to Meet Goals 4 Frequency of Treatment Frequency Of Treatment Twice a Day Treatment Plan Physical Therapy Treatment Plan Bed Mobility Training,Transfer Training,Gait Training, Therapeutic Exercise,Balance Retraining,Post Op Education, Discharge Planning,Hot or Cold Pack,Neuromuscular Re-ed Precautions Other Precautions pt had low H&H after surgery, received blood transfusion Weight Bearing Status Weight Bearing Status Weight Bear as Tolerated Allowed Weight Bearing Amount (enter % right LE with use of FWW or #) (%) Recommendations To Nursing Amount of Assist Needed 1 Person Assist Discharge Recommendations PT Discharge Recommendations Home with Assistance, Outpatient PT Other Discharge Recommendations she is safe to discharge home today if cleared medically Transportation Needs at Discharge Private Vehicle
[2024-07-03 16:00] VITALS: BP 170/87; PULSE 66; RESP 17; TEMP 36.4; O2SAT 98
[2024-07-03 18:18] VITALS: BP 119/66; PULSE 67; RESP 16; TEMP 36.7
[2024-07-03 18:35] VITALS: BP 137/81; PULSE 63; RESP 17; TEMP 36.6
[2024-07-03] MEDS: TRAZODONE 50 MG TABLET 100 MG PO (20:59)
[2024-07-03] MEDS: DOCUSATE 100 MG CAPSULE PO (21:00)
[2024-07-03 21:25] VITALS: BP 117/62; PULSE 63; RESP 17; TEMP 36.9; O2SAT 93
[2024-07-03 21:26] VITALS: BP 117/62; PULSE 63; RESP 17; TEMP 36.9
--- NOTE | 2024-07-03 22:23 | EKG_ITS ---
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
[2024-07-03 22:45] LABS: Hematocrit 26.4 % (36-46); Hemoglobin 8.7 g/dL (12.0-16.0)
[2024-07-04] MEDS: PANTOPRAZOLE DR 40 MG TABLET PO (05:37)
[2024-07-04] MEDS: ACETAMINOPHEN 325 MG TABLET 650 MG PO (05:42)
[2024-07-04 06:35] LABS: Hematocrit 27.9 % (36-46); Hemoglobin 9.1 g/dL (12.0-16.0)
[2024-07-04] MEDS: ASPIRIN EC 81 MG TABLET PO (08:51)
[2024-07-04] MEDS: VENLAFAXINE 37.5 MG TABLET 75 MG PO (08:51)
--- NOTE | 2024-07-04 09:18 | PM.DS.1 ---
History of Present Illness History of Present Illness Chief complaint: OPB Narrative: PATIENT SUMMARY: The patient, who underwent a right total knee arthroplasty performed by Dr. Us, is being evaluated for discharge following post-operative management. PAST SURGICAL HISTORY: - Right total knee arthroplasty performed by Dr. Us. Post-operatively, the patient experienced a drop in hemoglobin to 6.8 and received two units of packed red blood cells. There were no complications regarding deep vein thrombosis as the ultrasound was negative. SUBJECTIVE: The patient reported calf pain yesterday, which has improved. They also discussed concerns about showering and driving post-surgery. 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 PHYSICAL EXAM: 1) Constitutional: The patient is alert, oriented, and sitting in bed without any shortness of breath. 2) Musculoskeletal: On examination, the right knee has a surgical dressing that is clean, dry, and intact. The patient demonstrates intact sciatic nerve function with the ability to plantar flex and dorsiflex the ankle. Knee flexion is to approximately 80 degrees. ASSESSMENT: - Post-operative management following right total knee arthroplasty - Anemia, post-operative, resolved after transfusion - Calf pain, improving, with negative DVT ultrasound PLAN: - Continue current aspirin regimen - Encourage use of ice to manage pain and reduce reliance on oxycodone - Patient may shower with current waterproof dressing; avoid baths - Evaluate brake response before resuming driving - Discharge planning for today, pending final functional assessment DISPOSITION: The patient is planned to be discharged home today after completing necessary paperwork and breakfast. Discharge Providers Provider Date of admission: 07/02/24 13:39 Discharge Date: 07/04/24 Primary care physician: Albertina Guerrier PA-C Consults: 07/01/24 07:16 Consult to Anesthesiology Routine Comment: Consulting Provider: Anesthesiologist Reason for consultation: Regional block for post operative pain control Has provider been notified: No 07/01/24 17:56 Consult to Discharge Planning Routine Comment: Consult to Occupational Therapy Evaluate & Treat Comment: Physician Instructions: Evaluate and treat Consult to Physical Therapy Evaluate & Treat Comment: Physician Instructions: postop TKA protocol Discharge provider: Aaron Vick MD Exam Vital Signs (past 8 hours): Oxygen Delivery Method Room Air Oxygen Flow Rate 0 Objective Labs 07/04/24 05:52 Labs: Laboratory Results - last 24 hr 07/02/24 07/03/24 07/04/24 09:26 22:20 05:52 Hgb 8.7 L 9.1 L Hct 26.4 L 27.9 L Blood Type O Positive Antibody Screen Negative Crossmatch See Detail PFSH Medical History (Updated 06/25/24 @ 07:55 by Shannen Bella, RN) Cardiomyopathy Hiatal hernia Peritonitis HTN (hypertension) Insomnia Anemia IBS (irritable bowel syndrome) GERD (gastroesophageal reflux disease) Depression Asthma Surgical History (Updated 06/24/24 @ 15:31 by Shannen Bella, RN) Hx of esophagogastroduodenoscopy (06/18/16) Hx of LASIK H/O cataract extraction Hx of cholecystectomy (04/10/07) History of hysterectomy (~1979) Social History household members: spouse Smoking Status: Never smoker alcohol intake: current Discharge Plan Discharge Plan Patient Disposition: Home Discharge orders & Medications Prescriptions: Continued trazodone 50 mg tablet 100 mg PO DAILY aspirin 325 mg Tablet 650 mg PO Q8H PRN (Reason: Pain (Scale Score 4-6)) lansoprazole 30 mg capsule,delayed release(DR/EC) 30 mg PO DAILY albuterol sulfate 90 mcg/actuation HFA aerosol inhaler 108 mcg INHALATION PRN PRN (Reason: short of breath) Patient Comments: Not currently using. hydroxyzine pamoate 25 mg capsule 25 mg PO PRN PRN (Reason: itching.) Linzess 72 mcg capsule 72 mcg PO PRN PRN (Reason: Diarrhea) venlafaxine 75 mg tablet 75 mg PO BID Pharmacist Comment: DC scripts sent previously Follow up/Referrals: Albertina Guerrier PA-C [Primary Care Provider] - Diet/Activity/Treatments Diet: Diet as Tolerated Skin/Wound/Dressing Care Dressing: Maintain until followup. Do not submerge Visit Report/Discharge Packet Instructions: DI for Knee Replacement Stand Alone Forms: Patient Portal/API, Stroke Signs & Symptoms Discharge Data Primary Care Provider: Albertina Guerrier VTE Deep Vein Thrombosis/Pulmonary Embolism Present on Admission: No
--- NOTE | 2024-07-04 09:20 | PM.DS.1 ---
History of Present Illness History of Present Illness Chief complaint: OPB Narrative: PATIENT SUMMARY: The patient, who underwent a right total knee arthroplasty performed by Dr. Us, is being evaluated for discharge following post-operative management. PAST SURGICAL HISTORY: - Right total knee arthroplasty performed by Dr. Us. Post-operatively, the patient experienced a drop in hemoglobin to 6.8 and received two units of packed red blood cells. There were no complications regarding deep vein thrombosis as the ultrasound was negative. SUBJECTIVE: The patient reported calf pain yesterday, which has improved. They also discussed concerns about showering and driving post-surgery. She is in no acute distress and had no acute events overnight. PHYSICAL EXAM: 1) Constitutional: The patient is alert, oriented, and sitting in bed without any shortness of breath. 2) Musculoskeletal: On examination, the right knee has a surgical dressing that is clean, dry, and intact. The patient demonstrates intact sciatic nerve function with the ability to plantar flex and dorsiflex the ankle. Knee flexion is to approximately 80 degrees. ASSESSMENT: - Post-operative management following right total knee arthroplasty - Anemia, post-operative, resolved after transfusion - Calf pain, improving, with negative DVT ultrasound PLAN: - Continue current aspirin regimen - Encourage use of ice to manage pain and reduce reliance on oxycodone - Patient may shower with current waterproof dressing; avoid baths - Evaluate brake response before resuming driving - Discharge planning for today DISPOSITION: The patient is planned to be discharged home today after completing necessary paperwork and breakfast. Discharge Providers Provider Date of admission: 07/02/24 13:39 Discharge Date: 07/04/24 Primary care physician: Albertina Guerrier PA-C Consults: 07/01/24 07:16 Consult to Anesthesiology Routine Comment: Consulting Provider: Anesthesiologist Reason for consultation: Regional block for post operative pain control Has provider been notified: No 07/01/24 17:56 Consult to Discharge Planning Routine Comment: Consult to Occupational Therapy Evaluate & Treat Comment: Physician Instructions: Evaluate and treat Consult to Physical Therapy Evaluate & Treat Comment: Physician Instructions: postop TKA protocol Discharge provider: Aaron Vick MD Exam Vital Signs (past 8 hours): Oxygen Delivery Method Room Air Oxygen Flow Rate 0 Objective Labs 07/04/24 05:52 Labs: Laboratory Results - last 24 hr 07/02/24 07/03/24 07/04/24 09:26 22:20 05:52 Hgb 8.7 L 9.1 L Hct 26.4 L 27.9 L Blood Type O Positive Antibody Screen Negative Crossmatch See Detail [facility] Medical History (Updated 06/25/24 @ 07:55 by Shannen Bella, RN) Cardiomyopathy Hiatal hernia Peritonitis HTN (hypertension) Insomnia Anemia IBS (irritable bowel syndrome) GERD (gastroesophageal reflux disease) Depression Asthma Surgical History (Updated 06/24/24 @ 15:31 by Shannen Bella RN) Hx of esophagogastroduodenoscopy (06/18/16) Hx of LASIK H/O cataract extraction Hx of cholecystectomy (04/10/07) History of hysterectomy (~1979) Social History household members: spouse Smoking Status: Never smoker alcohol intake: current Discharge Plan Discharge Plan Patient Disposition: Home Discharge orders & Medications Prescriptions: Continued trazodone 50 mg tablet 100 mg PO DAILY aspirin 325 mg Tablet 650 mg PO Q8H PRN (Reason: Pain (Scale Score 4-6)) lansoprazole 30 mg capsule,delayed release(DR/EC) 30 mg PO DAILY albuterol sulfate 90 mcg/actuation HFA aerosol inhaler 108 mcg INHALATION PRN PRN (Reason: short of breath) Patient Comments: Not currently using. hydroxyzine pamoate 25 mg capsule 25 mg PO PRN PRN (Reason: itching.) Linzess 72 mcg capsule 72 mcg PO PRN PRN (Reason: Diarrhea) venlafaxine 75 mg tablet 75 mg PO BID Pharmacist Comment: DC scripts sent previously Follow up/Referrals: Albertina Guerrier PA-C [Primary Care Provider] - Diet/Activity/Treatments Diet: Diet as Tolerated Skin/Wound/Dressing Care Dressing: Maintain until followup. Do not submerge Visit Report/Discharge Packet Instructions: DI for Knee Replacement Stand Alone Forms: Patient Portal/API, Stroke Signs & Symptoms Discharge Data Primary Care Provider: Albertina Guerrier VTE Deep Vein Thrombosis/Pulmonary Embolism Present on Admission: No
--- NOTE | 2024-07-04 09:21 | PM.PN.1 ---
Exam Vital Signs (past 8 hours): Oxygen Delivery Method Room Air Oxygen Flow Rate 0 Objective Labs 07/04/24 05:52 Labs: Laboratory Results - last 24 hr 07/02/24 07/03/24 07/04/24 09:26 22:20 05:52 Hgb 8.7 L 9.1 L Hct 26.4 L 27.9 L Blood Type O Positive Antibody Screen Negative Crossmatch See Detail [facility] Medical History (Updated 06/25/24 @ 07:55 by Shannen Bella RN) Cardiomyopathy Hiatal hernia Peritonitis HTN (hypertension) Insomnia Anemia IBS (irritable bowel syndrome) GERD (gastroesophageal reflux disease) Depression Asthma Surgical History (Updated 06/24/24 @ 15:31 by Shannen Bella RN) Hx of esophagogastroduodenoscopy (06/18/16) Hx of LASIK H/O cataract extraction Hx of cholecystectomy (04/10/07) History of hysterectomy (~1979) Social History household members: spouse Smoking Status: Never smoker alcohol intake: current Assessment & Plan Time-Based Coding :: [TOTAL MINUTES] spent with patient and on the chart (including review of chart, obtaining history, exam, reviewing outside data, placing orders, documenting exam and treatment plan, and counseling patient) on [DATE]. Quality VTE Deep Vein Thrombosis/Pulmonary Embolism Present on Admission: No
--- NOTE | 2024-07-04 10:20 | PM.PNPO.1 ---
Subjective Subjective Interval history: She notes she is doing reasonably well. Her pain is adequately controlled. She has been up with physical therapy and she was waiting for her to come pick her up. Exam Vital Signs (past 8 hours): Oxygen Delivery Method Room Air Oxygen Flow Rate 0 Narrative Exam Narrative: Calf is soft, her dressing is dry, she has good range of motion, mild pain with range of motion Objective Labs 07/04/24 05:52 Labs: Laboratory Results - last 24 hr 07/02/24 07/03/24 07/04/24 09:26 22:20 05:52 Hgb 8.7 L 9.1 L Hct 26.4 L 27.9 L Blood Type O Positive Antibody Screen Negative Crossmatch See Detail ultrasound shows no evidence of a DVT PFSH Medical History (Updated 07/04/24 @ 10:22 by Rissa Us MD) Cardiomyopathy Hiatal hernia Peritonitis HTN (hypertension) Insomnia Anemia IBS (irritable bowel syndrome) GERD (gastroesophageal reflux disease) Depression Asthma Surgical History (Updated 06/24/24 @ 15:31 by Shannen Bella RN) Hx of esophagogastroduodenoscopy (06/18/16) Hx of LASIK H/O cataract extraction Hx of cholecystectomy (04/10/07) History of hysterectomy (~1979) Social History household members: spouse Smoking Status: Never smoker alcohol intake: current Assessment & Plan Post-op Assessment and plan (1) Failed total knee, right: Postoperative Procedures: Procedures Operation Date: 07/01/24 13:45 Actual Procedure Side Surgeon p RIGHT Knee Arthroplasty - Robot Right Rissa Us MD Postoperative day: 3 Postoperative status: doing well Postoperative plan: discharge Postoperative plan narrative: she is doing well postoperatively. I think she is safe to be discharged to home. We reviewed postoperative pain management and used taking iron and vitamin-C to help rebuild her baseline blood count. Quality VTE Deep Vein Thrombosis/Pulmonary Embolism Present on Admission: No
[2024-07-04 10:22] VITALS: BP 158/87; PULSE 65; RESP 18; TEMP 36.2; O2SAT 95
--- NOTE | 2024-07-04 12:21 | PC.NURSE ---
Pt agreeable to discharge. SBA w/ FWW. IV discontinued. Education provided on safety, fall prevention, follow up, and medications, stroke s/s. Pt dressed ind. Pt wheeled via w/c by PCT to private vehicle with spouse at approximately 1142.
--- NOTE | 2024-07-04 15:39 | CM.DPC ---
DCP Discharge Home Per Ortho MD, DVT was ruled out and pt's vitals stable and cleared by PT for home and medically stable to d/c home today. Per PT, recommending home with assist and outpt PT which is already set up. RN provided discharge instructions and spouse was bedside to provide transport and no concerns noted. RAGHAVENDRA Del Cid
== END 2024-07-04 11:42 | disposition home or self-care (01) | DRG 470 ==
LOC: OR 13:59 → AC 13:59
PROVIDERS: Physician Assistant; Admitting Provider Orthopaedic Surgery; PCP Physician Assistant; Referring Provider Orthopaedic Surgery; Visit Provider Orthopaedic Surgery
PROC: 0SRC0JZ Replacement of Right Knee Joint with Synthetic Substitute, Open Approach (ICD-10-PCS; CPT 27447; principal; 2024-07-01 13:45)
DX: M17.11 Unilateral primary osteoarthritis, right knee (principal); D62 Acute posthemorrhagic anemia; M79.661 Pain in right lower leg; F32.A Depression, unspecified; K21.9 Gastro-esophageal reflux disease without esophagitis; J45.909 Unspecified asthma, uncomplicated
CPT/HCPCS: 36415; 36430; 64450; 73560; 85014; 85018; 86850; 86900; 86901; 93005; 93010; 93971; 94640; 97110; 97116; 97162; 97530; C1776; P9016; C1713; J0171; J0666; J0690; J1171; J2704; J3010; J7613